=== PATIENT | male | born 1940 | race Caucasian/White ===

== ENCOUNTER 2020-10-02 14:02 | Inpatient (IN) | payer MEDICARE, BC ==
[~2020-10-02] VITALS: Ht 188 cm; Wt 105.3 kg
[~2020-10-02 14:02] MED LIST: ATOR80TA PO; FURO80TA87 PO; METF500T PO; NEBI5TAB8 PO; POTA-10 PO
[2020-10-02] MEDS ORDERED: ACET-73 PO (14:28)
[2020-10-02] MEDS ORDERED: MAGN400C PO (14:28)
[2020-10-02] MEDS ORDERED: MULT-978 PO (14:28)
[2020-10-02] MEDS ORDERED: DABI150C PO (14:28)
--- NOTE | 2020-10-02 15:11 | NUR ---
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
--- NOTE | 2020-10-02 15:25 | NUR ---
BLE dressings were removed per MD order. Comfort & safety measures maintained.
[2020-10-02 16:19] LABS: BASOPHILS % (AUTO) 0.4 % (0.0-2.0); EOSINOPHILS # (AUTO) 0.2 K/uL (0.0-0.7); EOSINOPHILS % (AUTO) 2.1 % (0.0-7.0); HEMATOCRIT 32.2 % (36.7-47.1); HEMOGLOBIN 10.8 g/dL (12.5-16.3); LYMPHOCYTES # (AUTO) 0.7 K/uL (20.0-40.0); LYMPHOCYTES % (AUTO) 8.7 % (20.5-51.5); MEAN CORPUSCULAR HGB CONC 34 g/dL (32.5-36.3); MEAN CORPUSCULAR VOLUME 83.1 fL (73.0-96.2); MONOCYTES # (AUTO) 0.5 K/uL (2.0-10.0); MONOCYTES % (AUTO) 6.3 % (0.0-11.0); NEUTROPHILS # (AUTO) 6.5 K/uL (1.8-8.9); NEUTROPHILS % (AUTO) 82.5 % (38.5-71.5); PLATELET COUNT (AUTO) 302 K/uL (152-348); RED BLOOD CELL COUNT(AUTO) 3.88 MIL/uL (4.06-5.63); WHITE BLOOD COUNT (AUTO) 7.9 K/uL (3.6-10.2)
[2020-10-02 16:22] LABS: CREATININE 1.1 mg/dL (0.6-1.3); POTASSIUM 3.8 mmol/L (3.5-5.1)
[2020-10-02 16:24] LABS: MAGNESIUM 1.9 mg/dL (1.8-2.4); PHOSPHOROUS 3.3 mg/dL (2.5-4.9)
--- NOTE | 2020-10-02 16:26 | NUR ---
Patient is resting comfortably on gurney with eyes closed, in high calix's position, maintained on continuous cardiac ,BP & sPo2 monitors with alarms set, on & audible, for results & disposition
[2020-10-02 16:34] LABS: BILIRUBIN,DIRECT 0.5 mg/dL (0.0-0.2); BILIRUBIN,TOTAL 1.4 mg/dL (0.2-1.0); TOTAL PROTEIN, SERUM 6.8 g/dL (6.4-8.2)
[2020-10-02 16:37] LABS: *BILIRUBIN,URIN NEGATIVE (NEGATIVE); *BLOOD, URINE 2+ (NEGATIVE); *CLARITY,URINE CLEAR (CLEAR); *COLOR,URINE YELLOW (YELLOW); *KETONES,URINE NEGATIVE (NEGATIVE); LEUKOCYTE ESTERASE ,URINE TRACE (NEGATIVE); NITRITE, URINE NEGATIVE (NEGATIVE); UGLUCOSE NEGATIVE (NEGATIVE)
[2020-10-02 16:54] LABS: THYROID STIMULATING HORMONE 3.732 mIU/mL (0.358-3.740)
[2020-10-02] MEDS ORDERED: FUROSEMIDE 40 MG/4 ML VIAL IV ONE ×2 (17:30→22:00)
[2020-10-02] MEDS ORDERED: ASPIRIN 325 MG TABLET PO ONE (17:30)
[2020-10-02] MEDS ORDERED: ASPIRIN 325 MG TABLET ONE (17:41)
[2020-10-02] MEDS ORDERED: FUROSEMIDE 40 MG/4 ML VIAL ONE ×2 (17:41)
--- NOTE | 2020-10-02 18:01 | NUR ---
BUCKLE SORTER Eveline [email or web address]
[2020-10-02] MEDS ORDERED: MAGNESIUM HYDROXIDE 30 ML LIQUID UDC PO PRN (18:15)
[2020-10-02] MEDS ORDERED: HYDROCODONE/APAP 10-325 MG TABLET PO PRN (18:15)
[2020-10-02] MEDS ORDERED: Z GUARD REMEDY PASTE 57 GM TUBE TOP PRN (18:15)
[2020-10-02] MEDS ORDERED: ACETAMINOPHEN 325 MG TABLET PO PRN (18:15)
[2020-10-02] MEDS ORDERED: ONDANSETRON 4 MG/2 ML VIAL IV PRN (18:15)
[2020-10-02] MEDS ORDERED: HYDROCODONE/APAP 5-325MG TABLET PO PRN (18:15)
--- NOTE | 2020-10-02 18:54 | NUR ---
Dinner [email or web address]
--- NOTE | 2020-10-02 19:04 | NUR ---
Hands off report given to WILLIAM Santillan. Patient is waiting for an accepting non-COVID telemetry nurse in 3rd floor@this time.
--- NOTE | 2020-10-02 20:50 | NUR ---
Admitted an 80 year old male with diagnosis of Acute CHF and Bilateral LE cellulitis. Alert and oriented x 4, able to make needs known. No s/s of respiratory distress, no pain or SOB reported. Atrial fibrillation on tele at 75/min. IV site on L hand, intact and patent. Routine admission care done. Plan of care initiated. Safety measures initiated and call santana within reach. Continue to monitor.
--- NOTE | 2020-10-02 20:57 | NUR ---
Pt. admitted to Telemetry, under care of Eveline Cardona. Diagnosis; CHF Belongs List completed
[2020-10-02] MEDS ORDERED: VANCOMYCIN IV 2,000 MG in IV DEXTROSE 5% 500 ML IV ONE (21:00)
[2020-10-02 21:22] LABS: BACTERIA,URINE FEW /HPF (NONE SEEN); SQUAMOUS EPITHELIAL CELL,UR FEW /HPF (NONE SEEN); WBC,URINE 20-50 /HPF (0-3)
[2020-10-02 21:23] VITALS: BP 115/76
[2020-10-02] MEDS: ATORVASTATIN 40 MG TABLET PO SCH (22:54)
[2020-10-02] MEDS ORDERED: VANCOMYCIN 1000 MG VIAL ONE (23:01)
[2020-10-02] MEDS ORDERED: PIPERACILLIN SODIUM/TAZO 3.375 GM VIAL ONE (23:27)
[2020-10-03] MEDS: PIPERACILLIN SODIUM/TAZOBACTAM 3.375 G in IV DEXTROSE 5% 50 ML IV SCH ×4 (00:12→17:27)
[2020-10-03 00:37] VITALS: BP 122/71
[2020-10-03 05:12] VITALS: BP 125/62
[2020-10-03] MEDS ORDERED: PIPERACILLIN SODIUM/TAZO 3.375 GM VIAL ONE (05:12)
--- NOTE | 2020-10-03 06:55 | NUR ---
Patient in bed, awake, cooperative with care, able to make needs known. No s/s of respiratory distress, no pain or discomfort reported. IV access on left hand and right arm, intact and patent. Medications tolerated well.
[2020-10-03 07:06] LABS: BASOPHILS % (AUTO) 0.6 % (0.0-2.0); EOSINOPHILS # (AUTO) 0.2 K/uL (0.0-0.7); EOSINOPHILS % (AUTO) 3.6 % (0.0-7.0); HEMATOCRIT 28.7 % (36.7-47.1); HEMOGLOBIN 9.6 g/dL (12.5-16.3); LYMPHOCYTES # (AUTO) 0.8 K/uL (20.0-40.0); LYMPHOCYTES % (AUTO) 12.8 % (20.5-51.5); MEAN CORPUSCULAR HEMOGLOBIN 27.2 uug (23.8-33.4); MEAN CORPUSCULAR HGB CONC 33 g/dL (32.5-36.3); MEAN CORPUSCULAR VOLUME 81.5 fL (73.0-96.2); MONOCYTES # (AUTO) 0.3 K/uL (2.0-10.0); MONOCYTES % (AUTO) 5.4 % (0.0-11.0); NEUTROPHILS % (AUTO) 77.6 % (38.5-71.5); PLATELET COUNT (AUTO) 293 K/uL (152-348); RED BLOOD CELL COUNT(AUTO) 3.52 MIL/uL (4.06-5.63); WHITE BLOOD COUNT (AUTO) 6.4 K/uL (3.6-10.2)
[2020-10-03 07:28] LABS: BILIRUBIN,TOTAL 1.4 mg/dL (0.2-1.0); CREATININE 1.1 mg/dL (0.6-1.3); MAGNESIUM 1.5 mg/dL (1.8-2.4); PHOSPHOROUS 3.2 mg/dL (2.5-4.9); POTASSIUM 3.3 mmol/L (3.5-5.1); TOTAL PROTEIN, SERUM 6.3 g/dL (6.4-8.2)
--- NOTE | 2020-10-03 07:30 | NUR ---
pt in bed resting, awake alert and oriented x 4, pt is [place], on room air saturating 98%. No signs of distress noted. IV access on the left hand and the right AC. Pt has urinal at bedside. Call light within reach. Bed in low and locked position, safety precautions in place. Will continue to monitor.
[2020-10-03] MEDS ORDERED: POTASSIUM CHLORIDE 20 MEQ TAB.PRT.SR PO SCH (09:45)
[2020-10-03] MEDS: MAGNESIUM OXIDE 400 MG TABLET PO SCH (09:57)
[2020-10-03] MEDS: DABIGATRAN ETEXILATE MESYLATE 150 MG CAPSULE PO SCH ×2 (09:57→17:26)
[2020-10-03] MEDS: ATENOLOL 50 MG TABLET PO SCH (09:58)
[2020-10-03] MEDS: MAGNESIUM SULFATE/D5W 100 ML IV SCH ×2 (09:58→11:16)
--- NOTE | 2020-10-03 10:45 | NUR ---
Home medications taken to pharmacy.
[2020-10-03 11:53] VITALS: BP 116/73
[2020-10-03] MEDS: FUROSEMIDE 40 MG/4 ML VIAL IV SCH ×2 (15:39→20:24)
[2020-10-03 16:00] VITALS: BP 113/50
--- NOTE | 2020-10-03 18:56 | NUR ---
pt resting in bed, awake alert and oriented x 4, pt on RA, no signs of distress noted. Pt is [place]. IV access on the left hand and the right AC. Voiding in urinal at bedside. Bed rails up x2, bed in low and locked position, call light within reach. Medications given as ordered. safety precautions in place. Will endorse to oncoming nurse.
--- NOTE | 2020-10-03 19:30 | NUR ---
Received patient in bed, awake, alert and oriented x 4, able to make needs known. No s/s of respiratory distress, no pain or SOB reported. Atrial fibrillation on tele. IV site on L hand and right upper arm, intact and patent. Call santana within reach, bed in low position. will continue to monitor.
[2020-10-03] MEDS: VANCOMYCIN IV 1,250 MG in IV DEXTROSE 5% 250 ML IV SCH (20:26)
[2020-10-03] MEDS: ATORVASTATIN 40 MG TABLET PO SCH (20:27)
[2020-10-03 20:29] VITALS: BP 109/69
[2020-10-04] MEDS: PIPERACILLIN SODIUM/TAZOBACTAM 3.375 G in IV DEXTROSE 5% 50 ML IV SCH ×4 (00:29→17:36)
[2020-10-04 01:13] VITALS: BP 124/64
[2020-10-04 06:02] VITALS: BP 130/64
--- NOTE | 2020-10-04 06:45 | NUR ---
Patient in bed, awake, alert and oriented, cooperative with care, able to make needs known. No s/s of respiratory distress, no pain or discomfort reported. IV access on right wrist, intact and patent. Medications tolerated well. Patient requested for Flu vaccine. Will endorse to day shift nurse.
[2020-10-04 06:51] LABS: BASOPHILS % (AUTO) 0.3 % (0.0-2.0); EOSINOPHILS # (AUTO) 0.1 K/uL (0.0-0.7); EOSINOPHILS % (AUTO) 1.5 % (0.0-7.0); HEMATOCRIT 29.5 % (36.7-47.1); HEMOGLOBIN 9.8 g/dL (12.5-16.3); LYMPHOCYTES # (AUTO) 0.7 K/uL (20.0-40.0); MEAN CORPUSCULAR HEMOGLOBIN 27.3 uug (23.8-33.4); MEAN CORPUSCULAR HGB CONC 33 g/dL (32.5-36.3); MEAN CORPUSCULAR VOLUME 82.2 fL (73.0-96.2); MONOCYTES # (AUTO) 0.6 K/uL (2.0-10.0); MONOCYTES % (AUTO) 6.6 % (0.0-11.0); NEUTROPHILS # (AUTO) 7.9 K/uL (1.8-8.9); NEUTROPHILS % (AUTO) 83.6 % (38.5-71.5); PLATELET COUNT (AUTO) 305 K/uL (152-348); RED BLOOD CELL COUNT(AUTO) 3.59 MIL/uL (4.06-5.63); WHITE BLOOD COUNT (AUTO) 9.4 K/uL (3.6-10.2)
[2020-10-04 07:15] LABS: BILIRUBIN,TOTAL 1.7 mg/dL (0.2-1.0); CREATININE 1.1 mg/dL (0.6-1.3); POTASSIUM 3.2 mmol/L (3.5-5.1); TOTAL PROTEIN, SERUM 6.5 g/dL (6.4-8.2)
--- NOTE | 2020-10-04 08:15 | NUR ---
Received Patient resting in bed, awake, alert and oriented X4 , No s/s distress, IV access on right wrist, intact and patent. Will continue to monitor.
[2020-10-04] MEDS: FUROSEMIDE 40 MG/4 ML VIAL IV SCH ×2 (10:02→21:04)
[2020-10-04] MEDS: MAGNESIUM OXIDE 400 MG TABLET PO SCH (10:02)
[2020-10-04] MEDS: POTASSIUM CHLORIDE 20 MEQ TAB.PRT.SR PO SCH ×2 (10:02→11:23)
[2020-10-04] MEDS: DABIGATRAN ETEXILATE MESYLATE 150 MG CAPSULE PO SCH ×2 (10:05→17:35)
[2020-10-04] MEDS: ATENOLOL 50 MG TABLET PO SCH (10:08)
[2020-10-04 12:00] VITALS: BP 132/80
[2020-10-04 16:00] VITALS: BP 135/76
[2020-10-04] MEDS: VANCOMYCIN IV 1,250 MG in IV DEXTROSE 5% 250 ML IV SCH (16:11)
--- NOTE | 2020-10-04 18:50 | NUR ---
Patient in bed, awake, alert and oriented X4, No s/s distress, IV access on right wrist, intact and patent. Scrutum elevated to decrease scrutum edema.
--- NOTE | 2020-10-04 19:06 | NUR ---
Patient resting in bed, awake, alert and oriented X4 , No s/s distress, IV access on right wrist, intact and patent. Will continue to monitor.
[2020-10-04 20:00] VITALS: BP 122/66
--- NOTE | 2020-10-04 20:00 | NUR ---
AWAKE ALERT ,COOPERATIVE, LOWER EXTREMITIES WITH BANDAGE NOTED,UA SEND TO LAB. IN NO ACUTE DISTRESS, NO COMPLAITS MADE.
--- NOTE | 2020-10-04 20:00 | NUR ---
QUIET,REPOSITION FOR COMFORT ,TALKED WITH THE FAMILY, RESTING COMFORTABLY. NO PAIN NOTED
[2020-10-04] MEDS: ATORVASTATIN 40 MG TABLET PO SCH (21:04)
[2020-10-04 22:35] LABS: *BILIRUBIN,URIN NEGATIVE (NEGATIVE); *BLOOD, URINE 1+ (NEGATIVE); *CLARITY,URINE CLEAR (CLEAR); *COLOR,URINE YELLOW (YELLOW); *KETONES,URINE NEGATIVE (NEGATIVE); *UROBILINOGEN,URINE 0.2 E.U./dl (NORMAL); LEUKOCYTE ESTERASE ,URINE NEGATIVE (NEGATIVE); NITRITE, URINE NEGATIVE (NEGATIVE); PH,URINE 7.5 (5.0-8.0); UGLUCOSE NEGATIVE (NEGATIVE)
[2020-10-04 23:40] VITALS: BP 122/66
[2020-10-05] MEDS: PIPERACILLIN SODIUM/TAZOBACTAM 3.375 G in IV DEXTROSE 5% 50 ML IV SCH ×5 (00:12→23:51)
[2020-10-05 01:18] VITALS: BP 110/73
[2020-10-05 03:48] LABS: BACTERIA,URINE NONE SEEN /HPF (NONE SEEN); SQUAMOUS EPITHELIAL CELL,UR FEW /HPF (NONE SEEN); URINE AMORPHOUS PHOSPHATES FEW /HPF
[2020-10-05 05:05] VITALS: BP 139/82
[2020-10-05 07:04] LABS: BASOPHILS % (AUTO) 0.3 % (0.0-2.0); EOSINOPHILS # (AUTO) 0.2 K/uL (0.0-0.7); EOSINOPHILS % (AUTO) 2.3 % (0.0-7.0); HEMOGLOBIN 9.6 g/dL (12.5-16.3); LYMPHOCYTES # (AUTO) 0.9 K/uL (20.0-40.0); LYMPHOCYTES % (AUTO) 10.1 % (20.5-51.5); MEAN CORPUSCULAR HEMOGLOBIN 27.1 uug (23.8-33.4); MEAN CORPUSCULAR HGB CONC 33 g/dL (32.5-36.3); MEAN CORPUSCULAR VOLUME 81.7 fL (73.0-96.2); MONOCYTES # (AUTO) 0.7 K/uL (2.0-10.0); MONOCYTES % (AUTO) 8.3 % (0.0-11.0); NEUTROPHILS # (AUTO) 6.7 K/uL (1.8-8.9); PLATELET COUNT (AUTO) 295 K/uL (152-348); RED BLOOD CELL COUNT(AUTO) 3.54 MIL/uL (4.06-5.63); WHITE BLOOD COUNT (AUTO) 8.5 K/uL (3.6-10.2)
[2020-10-05 07:33] LABS: BILIRUBIN,TOTAL 2.2 mg/dL (0.2-1.0); MAGNESIUM 1.9 mg/dL (1.8-2.4); POTASSIUM 3.4 mmol/L (3.5-5.1); TOTAL PROTEIN, SERUM 6.4 g/dL (6.4-8.2)
[2020-10-05] MEDS: ATENOLOL 50 MG TABLET PO SCH (09:30)
[2020-10-05] MEDS: FUROSEMIDE 40 MG/4 ML VIAL IV SCH (09:30)
[2020-10-05] MEDS: DABIGATRAN ETEXILATE MESYLATE 150 MG CAPSULE PO SCH ×2 (09:30→17:00)
[2020-10-05] MEDS: MAGNESIUM OXIDE 400 MG TABLET PO SCH (09:31)
[2020-10-05] MEDS ORDERED: POTASSIUM CHLORIDE 20 MEQ TAB.PRT.SR PO SCH (09:45)
[2020-10-05] MEDS: VANCOMYCIN IV 1,250 MG in IV DEXTROSE 5% 250 ML IV SCH (09:50)
[2020-10-05 11:36] VITALS: BP 131/82
--- NOTE | 2020-10-05 12:24 | NUR ---
WOUND CARE CONSULT: PT PRESENTS WITH LOWER EXTREMITY WOUNDS, SACRAL SCAR AND SOME INCONTINENCE ASSOCIATED SKIN DAMAGE OVER SACRAL SCARRING AND TO BUTTOCKS, PRESENT ON ADMISSION. RECOMMEND DPM CONSULT. DR SILVA NOTIFIED OF CONSULT REQUEST. RECOMMENDATIONS MADE FOR SACRAL AND BUTTOCKS ISSUES. DISCUSSED WITH NURSING STAFF. PT REFUSED BARIATRIC BED. PT IS ABLE TO ASSIST WITH TURNING AND REPOSITIONING IN BED. ENTIRE LINENS CHANGED AFTER PT WAS INCONTINENT OF LARGE AMOUNT OF URINE. MD IN AGREEMENT WITH PLAN OF CARE.
[2020-10-05 16:28] VITALS: BP 150/96
[2020-10-05 17:58] LABS: *CREATININE,URINE 21.3 mg/dL (30-125); *URINE TOTAL PROTEIN RANDOM 44.2 mg/dL (<150/24HR)
[2020-10-05 20:03] VITALS: BP 126/79
[2020-10-05] MEDS: ATORVASTATIN 40 MG TABLET PO SCH (20:32)
--- NOTE | 2020-10-05 23:00 | NUR ---
RECEIVED REPORT FOR CONTINUATION OF CARE.
[2020-10-06 00:06] VITALS: BP 133/78
[2020-10-06] MEDS: VANCOMYCIN IV 1,250 MG in IV DEXTROSE 5% 250 ML IV SCH (02:57)
[2020-10-06 04:06] VITALS: BP 134/76
[2020-10-06] MEDS: PIPERACILLIN SODIUM/TAZOBACTAM 3.375 G in IV DEXTROSE 5% 50 ML IV SCH ×2 (05:47→12:01)
[2020-10-06 06:57] LABS: CREATININE 0.9 mg/dL (0.6-1.3); POTASSIUM 3.4 mmol/L (3.5-5.1)
[2020-10-06] MEDS: DABIGATRAN ETEXILATE MESYLATE 150 MG CAPSULE PO SCH (08:41)
[2020-10-06] MEDS: MAGNESIUM OXIDE 400 MG TABLET PO SCH (08:41)
[2020-10-06] MEDS: ATENOLOL 50 MG TABLET PO SCH (08:42)
[2020-10-06] MEDS ORDERED: BUMETANIDE 1 MG TABLET PO SCH (09:00)
[2020-10-06] MEDS ORDERED: POTASSIUM CHLORIDE 20 MEQ TAB.PRT.SR PO ONE (11:30)
[2020-10-06] MEDS ORDERED: BUME2TAB7 PO ×3 (12:33→12:50)
[2020-10-06 12:37] VITALS: BP 129/78
[2020-10-06 13:06] LABS: A/G RATIO 0.8 (0.7-1.7); ALBUMIN 2.5 g/dL (2.9-4.4); ALPHA-1-GLOBULIN 0.4 g/dL (0.0-0.4); ALPHA-2-GLOBULIN 0.8 g/dL (0.4-1.0); BETA GLOBULIN 0.8 g/dL (0.7-1.3); GAMMA GLOBULIN 1.2 g/dL (0.4-1.8); GLOBULIN, TOTAL 3.2 g/dL (2.2-3.9); M-SPIKE Not Observed g/dL (Not Observed)
[2020-10-06 15:50] VITALS: BP 124/74
== END 2020-10-06 17:08 | disposition home health service (06) | DRG 264 ==
LOC: ER 14:02 → TELE3 20:10
PROVIDERS: ADMIT Nurse Practitioner Acute Care; ATTEND Nurse Practitioner Family
PROC: 0JBQ0ZZ Excision of Right Foot Subcutaneous Tissue and Fascia, Open Approach (ICD-10-PCS; principal; 2020-10-05)
PROC: 0JBN0ZZ Excision of Right Lower Leg Subcutaneous Tissue and Fascia, Open Approach (ICD-10-PCS; 2020-10-05)
PROC: 0JBP0ZZ Excision of Left Lower Leg Subcutaneous Tissue and Fascia, Open Approach (ICD-10-PCS; 2020-10-05)
DX: I13.0 Hypertensive heart and chronic kidney disease with heart failure and stage 1 through stage 4 chronic kidney disease, or unspecified chronic kidney disease (principal); E43 Unspecified severe protein-calorie malnutrition; I50.23 Acute on chronic systolic (congestive) heart failure; N17.0 Acute kidney failure with tubular necrosis; I87.313 Chronic venous hypertension (idiopathic) with ulcer of bilateral lower extremity; I48.20 Chronic atrial fibrillation, unspecified; L97.828 Non-pressure chronic ulcer of other part of left lower leg with other specified severity; L97.818 Non-pressure chronic ulcer of other part of right lower leg with other specified severity; I87.311 Chronic venous hypertension (idiopathic) with ulcer of right lower extremity; L97.318 Non-pressure chronic ulcer of right ankle with other specified severity; E11.22 Type 2 diabetes mellitus with diabetic chronic kidney disease; N18.9 Chronic kidney disease, unspecified; I48.0 Paroxysmal atrial fibrillation; E66.01 Morbid (severe) obesity due to excess calories; E78.5 Hyperlipidemia, unspecified; E87.6 Hypokalemia; Z20.822 Contact with and (suspected) exposure to COVID-19; E88.09 Other disorders of plasma-protein metabolism, not elsewhere classified; E66.9 Obesity, unspecified; Z68.29 Body mass index [BMI] 29.0-29.9, adult; N50.89 Other specified disorders of the male genital organs; E11.40 Type 2 diabetes mellitus with diabetic neuropathy, unspecified; Z79.01 Long term (current) use of anticoagulants; Z79.84 Long term (current) use of oral hypoglycemic drugs; Z86.14 Personal history of Methicillin resistant Staphylococcus aureus infection; I87.2 Venous insufficiency (chronic) (peripheral)
CPT/HCPCS: 36415; 70030-TC; 71045; 76870; 83605; 83690; 83735; 83970; 84100; 84155; 84156; 84165; 84300; 84443; 85025; 85730; 87040; 87077; 87086; 93005; 93307; A4217; A4663; G0378; J1940; J2543; J3370; J3475; J7050; J7060